=== PATIENT | male | born 1995 | race Asian ===

== ENCOUNTER 2021-12-17 11:42 | Emergency (ER) | payer MEDICAID ==
[~2021-12-17] VITALS: Ht 170.2 cm; Wt 81.8 kg
[2021-12-17 14:21] VITALS: BP 124/76
== END 2021-12-17 14:46 | disposition home or self-care (01) ==
LOC: EMS 11:42
DX: S02.2XXA Fracture of nasal bones, initial encounter for closed fracture (principal); W51.XXXA Accidental striking against or bumped into by another person, initial encounter; Y93.89 Activity, other specified; Y92.89 Other specified places as the place of occurrence of the external cause; Y99.8 Other external cause status
CPT/HCPCS: 70486; 99284; Z7502